=== PATIENT | female | born 1995 | race Caucasian/White ===

== ENCOUNTER → 2020-06-28 11:23 | Outpatient (CLI) | payer BC, SELFPAY ==
--- NOTE | ~2020-06-28 | US_ITS ---
EXAMINATION: US thyroid DATE: 06/28/2020 11:35 INDICATION: Thyroiditis, unspecified. TECHNIQUE: Multiple ultrasound images of the thyroid were obtained. COMPARISON: None. FINDINGS: The right thyroid lobe measures 4.6 x 1.5 x 1.6 cm. The left thyroid lobe measures 4.0 x 1.6 x 1.4 c m. The thyroid is diffusely heterogeneous and hypoechoic with increased vascularity. No discrete nod ule. IMPRESSION: 1. Heterogeneous, hypervascular thyroid, consistent with chronic lymphocytic (Michael) thyroiditis versus Graves' disease. Reviewed, dictated and finalized at location A. IMPRESSION: 1. Heterogeneous, hypervascular thyroid, consistent with chronic lymphocytic (H ashimoto) thyroiditis versus Graves' disease.
== END ==
PROVIDERS: PCP Internal Medicine; Visit Provider Internal Medicine
DX: E06.9 Thyroiditis, unspecified (principal)
CPT/HCPCS: 76536

== ENCOUNTER → 2021-03-29 00:21 | Outpatient (CLI) | payer BC, SELFPAY ==
[2021-03-29 20:43] LABS: SARS-CoV-2 RNA PCR Positive
== END ==
PROVIDERS: PCP Internal Medicine; Visit Provider Physician Assistant
DX: U07.1 COVID-19 (principal)
CPT/HCPCS: C9803; U0003; U0005